=== PATIENT | male | born 1980 | race Two or more races ===

== ENCOUNTER 2023-07-02 11:52 | Emergency (ER) | payer OTHER ==
[~2023-07-02] VITALS: Ht 177.8 cm; Wt 113.8 kg
[2023-07-02 12:43] LABS: Basophils # (auto) 0.1 10 ^3/uL (0-0.2); Basophils % (auto) 0.9 % (0.0-2.0); Eosinophils # (auto) 0.1 10 ^3/uL (0-0.8); Eosinophils % (auto) 2.2 % (0.0-7.0); Hematocrit 46.3 % (41.0-53.0); Hemoglobin 16.2 g/dL (13.5-17.5); Lymphocytes # (auto) 1.1 10 ^3/uL (0.4-5.4); Lymphocytes % (auto) 17.9 % (10.0-50.0); Mean Corpuscular Hemoglobin 28.9 pg (28.0-32.0); Mean Corpuscular Hgb Conc. 34.9 g/dL (32.0-36.0); Mean Corpuscular Volume 82.7 fL (80.0-100.0); Monocytes # (auto) 0.5 10 ^3/uL (0-1.3); Monocytes % (auto) 7.3 % (0.0-12.0); Neutrophils # (auto) 4.5 10 ^3/uL (1.6-8.6); Neutrophils % (auto) 71.7 % (37.0-80.0); Nucleated Red Blood Cells % 0.1 %; Red Cell Distribution Width 14.2 % (11.8-14.3); White Blood Cell 6.3 10^3/uL (4.4-10.8)
[2023-07-02] MEDS ORDERED: IBU600T PO (12:46)
[2023-07-02 14:14] LABS: Anion Gap 15 (5-15); Calcium 9.3 mg/dL (8.5-10.1); Carbon Dioxide 20 mmol/L (20-30); Chloride 100 mmol/L (98-107); Potassium 4.3 mmol/L (3.5-5.1); Sodium 135 mmol/L (136-145)
[2023-07-02 14:17] LABS: Glucose 322 mg/dL (74-106)
[2023-07-02 14:18] LABS: BUN/Creatinine Ratio 7.4 (10.0-20.0); Blood Urea Nitrogen < 5 mg/dL (9-23)
[2023-07-02 16:10] LABS: Urine WBC None Seen /hpf (0 - 3)
[2023-07-02] MEDS: KETOROLAC TROMETH 60MG/2ML VIAL IM ONE (16:19)
[2023-07-02 16:20] LABS: Urine Bacteria NONE SEEN /hpf (None Seen); Urine Blood Negative /uL (Negative); Urine Clarity Clear (Clear); Urine Color Yellow (Yellow); Urine Protein, UAD TRACE (Negative); Urine Specific Gravity 1.037 (1.001-1.035); Urine pH 6.5 (5.0-8.0)
[2023-07-02 16:21] VITALS: BP 123/87; PULSE 105; RESP 15; TEMP 98.1; O2SAT 96
[2023-07-02] MEDS: SODIUM CHLORIDE 0.9% 1,000 ML IV ONE (16:24)
== END 2023-07-02 16:45 | disposition home or self-care (01) ==
LOC: ER 11:52
DX: R10.9 Unspecified abdominal pain (principal); R07.81 Pleurodynia; E11.65 Type 2 diabetes mellitus with hyperglycemia; Z79.1 Long term (current) use of non-steroidal anti-inflammatories (NSAID)
CPT/HCPCS: 36415; 71101; 80048; 81001; 85025; 96372; 99284; J1885; J7030